=== PATIENT | female | born 1975 | race Caucasian/White ===

== ENCOUNTER 2022-02-26 22:00 | Emergency (ER) | payer BC ==
[~2022-02-26] VITALS: Ht 157.5 cm; Wt 82.0 kg
[2022-02-26] MEDS ORDERED: DICYCLOMINE 10 MG/5 ML ORAL SYR PO STA (22:50)
[2022-02-26] MEDS ORDERED: VISCOUS LIDOCAINE 2% 15 ML UDC PO STA (22:50)
[2022-02-26] MEDS ORDERED: KETOROLAC 30MG/ML VIAL IV STA (22:50)
[2022-02-26] MEDS ORDERED: MAGNESIUM/ALUMINUM HYDROXIDE/SIMETHICONE 30ML UDC PO STA (22:50)
[2022-02-26] MEDS ORDERED: SODIUM CHLORIDE 0.9% 1,000 ML IV ONE (23:00)
[2022-02-26 23:17] LABS: CHLORIDE 105 mEq/L (98-107)
[2022-02-26 23:20] LABS: HCG SCREEN NEGATIVE
[2022-02-26 23:31] LABS: BASOPHILS % 1.1 % (0.0-2.0); EOSINOPHILS % 2.8 % (0.0-5.0); HEMATOCRIT. 33.1 % (36.0-48.0); HEMOGLOBIN. 10.2 g/dL (12.0-16.0); LYMPHOCYTES % 15.1 % (20.0-50.0); MEAN CORPUSCULAR HEMOGLOBIN 18.8 pg (28.0-32.0); MEAN CORPUSCULAR VOLUME 61.4 fL (81.0-99.0); MEAN PLATELET VOLUME 9.5 fl (7.4-10.4); MONOCYTES % 3.9 % (2.0-8.0); NEUTROPHILS % 77.1 % (40.0-76.0); PLATELET 414 x1000/uL (130-400); RED CELL DISTRIBUTION WIDTH 21.5 % (11.6-14.6)
[2022-02-27] MEDS ORDERED: IOHEXOL-300 100 ML BOTTLE ONE (00:15)
[2022-02-27 01:11] LABS: PLATELET ESTIMATE NORMAL
[2022-02-27 03:30] VITALS: BP 114/62
== END 2022-02-27 04:44 | disposition home or self-care (01) ==
LOC: ER 22:00
DX: R10.13 Epigastric pain (principal); D64.9 Anemia, unspecified
CPT/HCPCS: 36415; 74177; 80053; 83605; 83690; 84703; 85025; 96374; 99285; J1885; J7030; Q9967

== ENCOUNTER → 2022-12-13 | Outpatient (CLI) | payer BC ==
[2022-12-13 15:17] LABS: CREATININE 0.6 mg/dL (0.6-1.3); UREA NITROGEN BLOOD 14 mg/dL (7-21)
== END | disposition home or self-care (01) ==
LOC: LAB 14:15
PROVIDERS: ATTEND Surgery
DX: R10.9 Unspecified abdominal pain (principal)
CPT/HCPCS: 36415; 82565; 84520

== ENCOUNTER → 2023-01-02 | Outpatient (CLI) | payer BC ==
[~2023-01-02] MED LIST: BARIUM SULFATE 450ML ORAL SUSP ONE; IOHEXOL-300 100 ML BOTTLE ONE
== END | disposition home or self-care (01) ==
LOC: CT 07:38
PROVIDERS: ATTEND Surgery
DX: R10.84 Generalized abdominal pain (principal); Z98.890 Other specified postprocedural states
CPT/HCPCS: 74178; Q9967